=== PATIENT | female | born 1945 | race Hispanic/Latino ===

== ENCOUNTER 2018-07-26 09:05 | Outpatient (CLI) | payer MEDICARE ==
[2018-07-26 10:19] LABS: Chol/HDL Ratio 6.09 %
== END 2018-07-26 09:06 | disposition home or self-care (01) ==
LOC: LAB 09:05
PROVIDERS: ATTEND Internal Medicine
DX: E11.65 Type 2 diabetes mellitus with hyperglycemia (principal); E03.9 Hypothyroidism, unspecified; E78.2 Mixed hyperlipidemia
CPT/HCPCS: 36415; 80061; 82607; 83036; 84443

== ENCOUNTER 2018-08-09 11:19 | Outpatient (CLI) | payer MEDICARE | END 2018-08-09 11:20 | disposition home or self-care (01) | LOC: LAB 11:19 | PROVIDERS: ATTEND Internal Medicine | DX: B05.9 Measles without complication (principal) | CPT/HCPCS: 36415; 86735; 86762; 86765 ==

== ENCOUNTER 2018-11-09 09:41 | Outpatient (CLI) | payer MEDICARE ==
[2018-11-09 10:47] LABS: Chol/HDL Ratio 4.28 %
== END 2018-11-09 09:42 | disposition home or self-care (01) ==
LOC: LAB 09:41
PROVIDERS: ATTEND Internal Medicine
DX: E11.9 Type 2 diabetes mellitus without complications (principal); E78.2 Mixed hyperlipidemia
CPT/HCPCS: 36415; 80061; 83036

== ENCOUNTER 2019-04-12 10:15 | Outpatient (CLI) | payer MEDICARE ==
[2019-04-12 10:43] LABS: Basophils # (Auto) 0.1 K/mm3 (0.0-0.1); Basophils % (Auto) 1.1 % (0.0-1.8); Eosinophils # (Auto) 0.2 K/mm3 (0.0-0.4); Eosinophils % (Auto) 2.7 % (0.0-4.3); Hematocrit 42.9 % (30.3-42.9); Lymphocytes # (Auto) 1.4 K/mm3 (1.2-5.4); Lymphocytes % (Auto) 19.7 % (13.4-35.0); Mean Corpuscular HGB Conc 33 % (30-34); Mean Corpuscular Volume 92 fl (79-97); Monocytes # (Auto) 0.6 K/mm3 (0.0-0.8); Monocytes % (Auto) 8.5 % (0.0-7.3); Platelet Count 173 K/mm3 (140-440); Red Blood Count 4.65 M/mm3 (3.65-5.03); Red Cell Distribution Width 14.2 % (13.2-15.2)
[2019-04-12 11:07] LABS: Albumin 3.6 g/dL (3.9-5)
[2019-04-12 11:33] LABS: Creatinine,Urine 84.8 mg/dL (0.1-20.0)
[2019-04-12 11:48] LABS: Microalbumin/Creatinine Ratio 951.6 ug/mg
[2019-04-12 15:35] LABS: Chol/HDL Ratio 4.21 %
[2019-04-16 13:26] LABS: Vitamin D, 25-OH, D2 <4 ng/mL
== END 2019-04-12 10:16 | disposition home or self-care (01) ==
LOC: LAB 10:15
PROVIDERS: ATTEND Internal Medicine
DX: E11.65 Type 2 diabetes mellitus with hyperglycemia (principal); Z00.00 Encounter for general adult medical examination without abnormal findings; E03.9 Hypothyroidism, unspecified; E78.2 Mixed hyperlipidemia; N39.498 Other specified urinary incontinence; Z13.21 Encounter for screening for nutritional disorder; E55.9 Vitamin D deficiency, unspecified; Z11.59 Encounter for screening for other viral diseases
CPT/HCPCS: 36415; 80053; 80061; 82043; 82306; 82607; 83036; 84443; 85025; 86592

== ENCOUNTER 2020-01-04 09:31 | Outpatient (CLI) | payer MEDICARE ==
[2020-01-04 11:10] LABS: Chol/HDL Ratio 4.09 %
== END 2020-01-04 09:32 | disposition home or self-care (01) ==
LOC: LAB 09:31
PROVIDERS: ATTEND Internal Medicine
DX: E11.65 Type 2 diabetes mellitus with hyperglycemia (principal); E78.2 Mixed hyperlipidemia
CPT/HCPCS: 36415; 80061; 83036

== ENCOUNTER 2021-10-07 10:08 | Outpatient (CLI) | payer MEDICARE ==
[2021-10-07 11:49] LABS: Hematocrit 39.9 % (30.3-42.9); Hemoglobin 13.1 gm/dl (10.1-14.3); Mean Corpuscular HGB Conc 33 % (30-34); Mean Corpuscular Volume 96 fl (79-97); Platelet Count 171 K/mm3 (140-440); Red Blood Count 4.16 M/mm3 (3.65-5.03); Red Cell Distribution Width 14.7 % (13.2-15.2)
[2021-10-07 12:13] LABS: Alanine Aminotransferase 15 units/L (7-56); Albumin 3.8 g/dL (3.9-5); BUN/Creatinine Ratio 25; Blood Urea Nitrogen 50 mg/dL (7-17); Calcium 9.3 mg/dL (8.4-10.2); Chol/HDL Ratio 4.84 %; HDL Cholesterol 39 mg/dL (40-59); Hemolysis Index 11; LDL Cholesterol,Direct 95 mg/dL (50-130)
[2021-10-09 16:41] LABS: Vitamin D, 25-OH, D2 <4 ng/mL
== END 2021-10-07 10:09 | disposition home or self-care (01) ==
LOC: LABHHL 10:08
PROVIDERS: ATTEND Internal Medicine
DX: E11.65 Type 2 diabetes mellitus with hyperglycemia (principal); E55.9 Vitamin D deficiency, unspecified; I10 Essential (primary) hypertension; E78.2 Mixed hyperlipidemia; E03.9 Hypothyroidism, unspecified; Z00.00 Encounter for general adult medical examination without abnormal findings
CPT/HCPCS: 36415; 80053; 80061; 82306; 83036; 84443; 85027